=== PATIENT | female | born 1995 | race Two or more races ===

== ENCOUNTER 2018-02-14 11:29 | Inpatient (IN) | payer BC ==
[~2018-02-14] VITALS: Ht 162.6 cm; Wt 75.0 kg
[~2018-02-14 11:29] MED LIST: PREN1TAB60 PO
[2018-02-14] MEDS ORDERED: OXYTOCIN 30U/ 0.9% NaCL 500ML 500 ML IV PRN (21:32)
[2018-02-14] MEDS: D5%-LACTATED RINGERS 1,000 ML IV SCH (21:32)
[2018-02-14] MEDS ORDERED: OXYTOCIN 30U/ 0.9% NaCL 500ML 500 ML IV ONE (21:32)
[2018-02-14] MEDS: LACTATED RINGERS 1,000 ML IV SCH (21:32)
[2018-02-14 21:46] VITALS: BP 129/75
[2018-02-14] MEDS ORDERED: CALCIUM CARBONATE 500 MG TAB.CHEW PO PRN (22:00)
[2018-02-14] MEDS ORDERED: ONDANSETRON 2MG/ML, 2ML IVPush PRN (22:00)
[2018-02-14] MEDS ORDERED: TERBUTALINE 1 MG/ML, 1ML IVPush PRN (22:00)
[2018-02-14] MEDS ORDERED: FENTANYL PF 100 MCG/2ML IV PRN (22:00)
[2018-02-14 22:08] LABS: BASOPHILS # (AUTO) 0.02 x10^3/uL (0-0.1); BASOPHILS % (AUTO) 0 % (0-1); EOSINOPHILS # (AUTO) 0.21 x10^3/uL (0-0.4); EOSINOPHILS % (AUTO) 2 % (1-7); LYMPHOCYTES # (AUTO) 2.33 x10^3/uL (1-3.4); LYMPHOCYTES % (AUTO) 26 % (22-44); MD NO; MEAN CORPUSCULAR HEMOGLOBIN 30.8 pg (27.0-34.8); MEAN CORPUSCULAR HGB CONC 34.5 g/dL (32.4-35.8); MEAN CORPUSCULAR VOLUME 89.5 fL (80-100); MEAN PLATELET VOLUME 9.5 fL (7.4-10.4); MONOCYTES # (AUTO) 0.76 x10^3/uL (0.2-0.8); MONOCYTES % (AUTO) 8 % (2-9); NEUTROPHILS # (AUTO) 5.75 x10^3/uL (1.8-6.8); NEUTROPHILS % (AUTO) 63 % (42-75); PLATELET COUNT 239 x10^3/uL (130-400); RED BLOOD COUNT 4.19 x10^6/uL (3.82-5.3)
[2018-02-14] MEDS ORDERED: MISOPROSTOL 25 MCG TABLET ONE (22:19)
[2018-02-14] MEDS: MISOPROSTOL 25 MCG TABLET VG PRN (22:28)
[2018-02-15] MEDS ORDERED: MISOPROSTOL 25 MCG TABLET ONE (02:22)
[2018-02-15] MEDS: MISOPROSTOL 25 MCG TABLET VG PRN (03:25)
[2018-02-15] MEDS: LACTATED RINGERS 1,000 ML IV SCH ×2 (05:32→13:32)
[2018-02-15] MEDS: D5%-LACTATED RINGERS 1,000 ML IV SCH ×2 (05:32→13:32)
[2018-02-15] MEDS ORDERED: OXYTOCIN 30U/ 0.9% NaCL 500ML 500 ML ONE (09:23)
[2018-02-15] MEDS ORDERED: LIDOCAINE-MPF 1%, 5ML ONE ×3 (12:46→19:52)
[2018-02-15] MEDS ORDERED: FENTANYL PF 100 MCG/2ML ONE ×3 (16:09→19:13)
[2018-02-15] MEDS: FENTANYL PF 100 MCG/2ML IVPush PRN ×2 (16:12→17:25)
[2018-02-15] MEDS: OXYTOCIN 30U/ 0.9% NaCL 500ML 500 ML IV SCH (20:00)
[2018-02-15] MEDS ORDERED: METHYLERGONOVINE 0.2 MG/ML IM PRN (20:00)
[2018-02-15] MEDS ORDERED: IBUPROFEN 600 MG TABLET PO PRN (20:00)
[2018-02-15] MEDS ORDERED: ONDANSETRON 2MG/ML, 2ML IV PRN (20:00)
[2018-02-15] MEDS ORDERED: CALCIUM CARBONATE 500 MG TAB.CHEW PO PRN (20:00)
[2018-02-15] MEDS ORDERED: MISOPROSTOL 200 MCG TABLET PO PRN (20:00)
[2018-02-15] MEDS ORDERED: OXYcodone/APAP 5/325MG TABLET PO PRN (20:00)
[2018-02-15 21:40] VITALS: BP 133/88
[2018-02-16 00:30] VITALS: BP 91/60
[2018-02-16 03:34] LABS: MEAN CORPUSCULAR HEMOGLOBIN 30.7 pg (27.0-34.8); MEAN CORPUSCULAR HGB CONC 34.1 g/dL (32.4-35.8); MEAN PLATELET VOLUME 9.1 fL (7.4-10.4); PLATELET COUNT 228 x10^3/uL (130-400); RED BLOOD COUNT 3.19 x10^6/uL (3.82-5.3); RED CELL DISTRIBUTION WIDTH 13.4 % (9.6-15.2)
[2018-02-16 03:45] VITALS: BP 91/59
[2018-02-16 03:54] LABS: BASOPHILS # (AUTO) 0.01 x10^3/uL (0-0.1); BASOPHILS % (AUTO) 0 % (0-1); EOSINOPHILS % (AUTO) 0 % (1-7); LYMPHOCYTES # (AUTO) 1.58 x10^3/uL (1-3.4); LYMPHOCYTES % (AUTO) 7 % (22-44); MD SCAN; MONOCYTES # (AUTO) 1.01 x10^3/uL (0.2-0.8); MONOCYTES % (AUTO) 4 % (2-9); NEUTROPHILS # (AUTO) 21.09 x10^3/uL (1.8-6.8); NEUTROPHILS % (AUTO) 89 % (42-75)
[2018-02-16] MEDS: OXYTOCIN 30U/ 0.9% NaCL 500ML 500 ML IV SCH (06:00)
[2018-02-16 07:22] VITALS: BP 105/70
[2018-02-16] MEDS: PRENATAL VIT/IRON/FA 1 EACH TABLET PO SCH (09:25)
[2018-02-16] MEDS: DOCUSATE 100 MG CAPSULE PO PRN (09:25)
[2018-02-16 20:45] VITALS: BP 111/71
[2018-02-17 07:40] VITALS: BP 121/65
[2018-02-17] MEDS: DOCUSATE 100 MG CAPSULE PO PRN (11:42)
[2018-02-17] MEDS: PRENATAL VIT/IRON/FA 1 EACH TABLET PO SCH (11:42)
== END 2018-02-17 14:55 | disposition home or self-care (01) | DRG 775 ==
LOC: LDIP 21:02 → 2NW 02-15 21:21
PROVIDERS: ADMIT Obstetrics & Gynecology; ATTEND Obstetrics & Gynecology
PROC: 10E0XZZ Delivery of Products of Conception, External Approach (ICD-10-PCS; principal; 2018-02-16)
PROC: 0KQM0ZZ Repair Perineum Muscle, Open Approach (ICD-10-PCS; 2018-02-16)
DX: O69.81X0 Labor and delivery complicated by cord around neck, without compression, not applicable or unspecified (principal); O36.5930 Maternal care for other known or suspected poor fetal growth, third trimester, not applicable or unspecified; Z37.0 Single live birth; O70.1 Second degree perineal laceration during delivery; Z3A.39 39 weeks gestation of pregnancy; O36.8130 Decreased fetal movements, third trimester, not applicable or unspecified
CPT/HCPCS: 36415; 85025; 86850; 86900; J3010; J2590

== ENCOUNTER 2019-01-30 17:13 | Outpatient (CLI) | payer BC ==
[~2019-01-30] VITALS: Ht 162.6 cm; Wt 80.9 kg
[2019-01-30 17:39] VITALS: BP 132/75
[2019-01-30] MEDS ORDERED: ACETAMINOPHEN 325 MG TABLET ONE (17:54)
[2019-01-30 17:56] LABS: MICROSCOPIC NOT IND
[2019-01-30] MEDS ORDERED: ACETAMINOPHEN 325 MG TABLET PO PRN (18:00)
[2019-01-30 18:03] LABS: CULTURE INDICATED? NO
== END 2019-01-30 18:16 | disposition home or self-care (01) ==
LOC: LDOP 17:13
PROVIDERS: ATTEND Obstetrics & Gynecology
DX: O26.893 Other specified pregnancy related conditions, third trimester (principal); M54.9 Dorsalgia, unspecified; Z3A.38 38 weeks gestation of pregnancy
CPT/HCPCS: 59025; 81003; 99211; G0463

== ENCOUNTER 2019-02-09 17:44 | Outpatient (CLI) | payer BC | END 2019-02-09 18:15 | disposition home or self-care (01) | LOC: LDOP 17:44 | PROVIDERS: ATTEND Obstetrics & Gynecology | DX: O36.8130 Decreased fetal movements, third trimester, not applicable or unspecified (principal); Z3A.40 40 weeks gestation of pregnancy | CPT/HCPCS: 59025; 99201; G0463 ==

== ENCOUNTER 2019-02-13 06:04 | Inpatient (IN) | payer BC ==
[~2019-02-13] VITALS: Ht 162.6 cm; Wt 83.0 kg
[2019-02-13] MEDS ORDERED: NEWBORN KIT ONE (06:09)
[2019-02-13] MEDS ORDERED: OXYTOCIN 30U/ 0.9% NaCL 500ML 500 ML IV PRN (06:10)
[2019-02-13] MEDS ORDERED: D5%-LACTATED RINGERS 1,000 ML IV SCH (06:10)
[2019-02-13] MEDS ORDERED: OXYTOCIN 30U/ 0.9% NaCL 500ML 500 ML IV ONE (06:10)
[2019-02-13 06:29] VITALS: BP 138/82
[2019-02-13] MEDS ORDERED: FENTANYL PF 100 MCG/2ML IV PRN (06:30)
[2019-02-13] MEDS ORDERED: PENICILLIN GK 5,000,000 UNITS in DEXTROSE 5% 100 ML IVPB ONE (06:30)
[2019-02-13] MEDS ORDERED: MISOPROSTOL 25 MCG TABLET VG PRN (06:30)
[2019-02-13] MEDS ORDERED: ONDANSETRON 2MG/ML, 2ML IVPush PRN (06:30)
[2019-02-13 06:37] VITALS: BP 138/82
[2019-02-13] MEDS: LACTATED RINGERS 1,000 ML IV SCH ×2 (06:39→11:10)
[2019-02-13] MEDS ORDERED: MISOPROSTOL 200 MCG TABLET ONE (06:51)
[2019-02-13 06:55] LABS: BASOPHILS # (AUTO) 0.01 x10^3/uL (0-0.1); BASOPHILS % (AUTO) 0 % (0-1); EOSINOPHILS # (AUTO) 0.06 x10^3/uL (0-0.4); EOSINOPHILS % (AUTO) 1 % (1-7); LYMPHOCYTES # (AUTO) 2.22 x10^3/uL (1-3.4); LYMPHOCYTES % (AUTO) 26 % (22-44); MD NO; MEAN CORPUSCULAR HEMOGLOBIN 29.9 pg (27.0-34.8); MEAN CORPUSCULAR HGB CONC 33.1 g/dL (32.4-35.8); MEAN CORPUSCULAR VOLUME 90.5 fL (80-100); MEAN PLATELET VOLUME 9.6 fL (7.4-10.4); MONOCYTES # (AUTO) 0.54 x10^3/uL (0.2-0.8); MONOCYTES % (AUTO) 6 % (2-9); NEUTROPHILS # (AUTO) 5.74 x10^3/uL (1.8-6.8); NEUTROPHILS % (AUTO) 67 % (42-75); PLATELET COUNT 228 x10^3/uL (130-400); RED BLOOD COUNT 4.37 x10^6/uL (3.82-5.3); RED CELL DISTRIBUTION WIDTH 14.4 % (9.6-15.2)
[2019-02-13] MEDS ORDERED: PLEASE ENTER HEIGHT AND WEIGHT MC SCH (07:00)
[2019-02-13] MEDS: PENICILLIN GK 2,500,000 UNITS in DEXTROSE 5% 100 ML IVPB SCH ×2 (11:07→14:53)
[2019-02-13] MEDS ORDERED: ONDANSETRON 2MG/ML, 2ML ONE (12:20)
[2019-02-13] MEDS ORDERED: FENTANYL PF 100 MCG/2ML ONE ×2 (12:35→13:40)
[2019-02-13] MEDS: FENTANYL PF 100 MCG/2ML IVPush PRN ×2 (12:38→13:46)
[2019-02-13] MEDS ORDERED: OXYTOCIN 30U/ 0.9% NaCL 500ML 500 ML IV SCH (16:19)
[2019-02-13] MEDS ORDERED: IBUPROFEN 600 MG TABLET ONE (16:27)
[2019-02-13] MEDS: IBUPROFEN 600 MG TABLET PO PRN ×2 (16:29→22:52)
[2019-02-13] MEDS ORDERED: MAGNESIUM HYDROXIDE 8%, 30ML UDC PO PRN (16:30)
[2019-02-13] MEDS ORDERED: MISOPROSTOL 200 MCG TABLET PO PRN (16:30)
[2019-02-13] MEDS ORDERED: DOCUSATE 100 MG CAPSULE PO PRN (16:30)
[2019-02-13] MEDS ORDERED: OXYcodone/APAP 5/325MG TABLET PO PRN (16:30)
[2019-02-13] MEDS ORDERED: ONDANSETRON 2MG/ML, 2ML IV PRN (16:30)
[2019-02-13] MEDS ORDERED: OXYcodone IR 5MG TABLET PO PRN (16:30)
[2019-02-13] MEDS ORDERED: OXYTOCIN 30U/ 0.9% NaCL 500ML 500 ML ONE (16:48)
[2019-02-13] MEDS ORDERED: OXYcodone/APAP 5/325MG TABLET ONE (17:35)
[2019-02-13 17:50] VITALS: BP 118/77
[2019-02-13 20:00] VITALS: BP 127/77
[2019-02-13 22:47] LABS: BASOPHILS # (AUTO) 0.12 x10^3/uL (0-0.1); BASOPHILS % (AUTO) 1 % (0-1); EOSINOPHILS % (AUTO) 0 % (1-7); LYMPHOCYTES # (AUTO) 1.81 x10^3/uL (1-3.4); LYMPHOCYTES % (AUTO) 11 % (22-44); MD NO; MEAN CORPUSCULAR HEMOGLOBIN 29.8 pg (27.0-34.8); MEAN CORPUSCULAR HGB CONC 33.1 g/dL (32.4-35.8); MEAN CORPUSCULAR VOLUME 90.2 fL (80-100); MEAN PLATELET VOLUME 9.2 fL (7.4-10.4); MONOCYTES # (AUTO) 0.77 x10^3/uL (0.2-0.8); MONOCYTES % (AUTO) 5 % (2-9); NEUTROPHILS # (AUTO) 13.71 x10^3/uL (1.8-6.8); NEUTROPHILS % (AUTO) 84 % (42-75); PLATELET COUNT 206 x10^3/uL (130-400); RED BLOOD COUNT 3.24 x10^6/uL (3.82-5.3); RED CELL DISTRIBUTION WIDTH 14.2 % (9.6-15.2)
[2019-02-14 01:00] VITALS: BP 105/61
[2019-02-14 04:55] VITALS: BP 110/64
[2019-02-14 08:06] VITALS: BP 128/78
[2019-02-14] MEDS ORDERED: PRENATAL VIT/IRON/FA 1 EACH TABLET PO SCH (09:00)
[2019-02-14] MEDS: IBUPROFEN 600 MG TABLET PO PRN (11:44)
[2019-02-14] MEDS ORDERED: IBUP-1222 PO (14:10)
[2019-02-14] MEDS ORDERED: OXYC-302 PO (14:11)
== END 2019-02-14 15:30 | disposition home or self-care (01) | DRG 807 ==
LOC: LDIP 06:04 → 2NW 17:42
PROVIDERS: ADMIT Obstetrics & Gynecology; ATTEND Obstetrics & Gynecology
PROC: 10E0XZZ Delivery of Products of Conception, External Approach (ICD-10-PCS; principal; 2019-02-13)
PROC: 0KQM0ZZ Repair Perineum Muscle, Open Approach (ICD-10-PCS; 2019-02-13)
PROC: 10907ZC Drainage of Amniotic Fluid, Therapeutic from Products of Conception, Via Natural or Artificial Opening (ICD-10-PCS; 2019-02-13)
DX: O48.0 Post-term pregnancy (principal); Z37.0 Single live birth; O36.5930 Maternal care for other known or suspected poor fetal growth, third trimester, not applicable or unspecified; O69.81X0 Labor and delivery complicated by cord around neck, without compression, not applicable or unspecified; O70.1 Second degree perineal laceration during delivery; O77.0 Labor and delivery complicated by meconium in amniotic fluid; Z3A.40 40 weeks gestation of pregnancy; Z82.3 Family history of stroke; Z82.49 Family history of ischemic heart disease and other diseases of the circulatory system; Z83.3 Family history of diabetes mellitus
CPT/HCPCS: 36415; 85025; 86850; 86900; G0378; J2405; J2540; J3010; J7120